=== PATIENT | female | born 1990 | race Caucasian/White ===

== ENCOUNTER 2016-03-23 08:07 | Emergency (ER) | END 2016-03-23 10:16 | disposition home or self-care (01) | DX: O20.9 Hemorrhage in early pregnancy, unspecified (principal); Z3A.15 15 weeks gestation of pregnancy | CPT/HCPCS: 36415; 76805; 81001; 84702; 85025; 86900; 86901; Z7502 ==

== ENCOUNTER 2016-05-07 23:48 | Outpatient (CLI) | payer MEDICAID ==
[~2016-05-07] VITALS: Ht 157.5 cm; Wt 72.1 kg
[2016-05-08 00:04] VITALS: BP 118/55; PULSE 109; RESP 20
[2016-05-08] MEDS ORDERED: PRENAT PO (00:10)
[2016-05-08] MEDS ORDERED: ACETAMINOPHEN 325 MG TAB PO ONE (00:30)
[2016-05-08] MEDS ORDERED: LACTATED RINGER'S 1,000 ML IV ONE (00:30)
[2016-05-08 00:43] LABS: ADD SCAN DIFF NO
[2016-05-08 00:47] LABS: BASOPHILS % 0.1 % (0.0-2.0); EOSINOPHILS % 0.3 % (0.0-7.0); HEMATOCRIT 29.7 % (37.0-47.0); HEMOGLOBIN 10.3 g/dl (12.0-16.0); LYMPHOCYTES # 0.8 10^3/ul (0.8-2.9); MEAN CORPUSCULAR HEMOGLOBIN 31.1 pg (29.0-33.0); MEAN CORPUSCULAR HGB CONC 34.7 g/dl (32.0-37.0); MEAN CORPUSCULAR VOLUME 89.7 fl (82.0-101.0); MEAN PLATELET VOLUME 9.2 fl (7.4-10.4); MONOCYTE # 0.4 10^3/ul (0.3-0.9); MONOCYTES % 5.6 % (0.0-11.0); NEUTROPHIL # 6.6 10^3/ul (1.6-7.5); NEUTROPHILS % 83.5 % (39.0-77.0); PLATELET COUNT 217 10^3/UL (140-415); RED BLOOD COUNT 3.31 10^6/ul (4.20-5.40); RED CELL DISTRIBUTION WIDTH 12.8 % (11.5-14.5); WHITE BLOOD COUNT 7.9 10^3/ul (4.8-10.8)
[2016-05-08 01:10] LABS: ALBUMIN 3.3 g/dl (3.3-4.9)
[2016-05-08 01:11] LABS: POTASSIUM 3.7 mmol/L (3.5-5.1)
[2016-05-08 01:13] LABS: ALBUMIN/GLOBULIN RATIO 1.17; BILIRUBIN,INDIRECT 0.3 mg/dl (0-1.1); BILIRUBIN,TOTAL 0.3 mg/dl (0.2-1.3); CREATININE 0.54 mg/dl (0.44-1.00); TOTAL PROTEIN 6.1 g/dl (6.1-8.1)
[2016-05-08 01:14] LABS: CALCIUM 8.5 mg/dl (8.4-10.2)
[2016-05-08 01:14] LABS: ADD UMIC NO; URINE BILIRUBIN (Dip) NEGATIVE (NEGATIVE); URINE BLOOD (Dip) NEGATIVE (NEGATIVE); URINE COLOR LT. YELLOW (YELLOW); URINE GLUCOSE (Dip) NEGATIVE (NEGATIVE); URINE KETONES (Dip) NEGATIVE (NEGATIVE); URINE LEUKOCYTE ESTERASE (Dip) NEGATIVE (NEGATIVE); URINE NITRITE (Dip) NEGATIVE (NEGATIVE); URINE TOTAL PROTEIN (Dip) NEGATIVE (NEGATIVE); URINE UROBILINOGEN (Dip) 0.2 E.U./dL (0.1-1.0)
[2016-05-08] MEDS ORDERED: LACTATED RINGER'S 1,000 ML IV SCH (01:20)
--- NOTE | 2016-05-08 02:46 | TRIAGE ---
OB Triage Datetime Report Generated by CPN: 05/08/2016 02:46 Datetime: 05/08/2016 01:57 Stage of : OB Triage Datetime: 05/08/2016 01:44 Nausea/Vomiting: Denies Datetime: 05/08/2016 01:15 Headache: Denies Pain Assessment Pain Scale: 0 Pain Presence: None/Denies Pain Type: N/A Pain Goal: 3 Pain Relief Measures: Pain Medication Given; Comfort Measures Pain Assessment Comments: PT DENIES FEELING ANY PAIN, STATES "I DO NOT HAVE ANY BODY ACHE OR HEADA K[place] ANYMORE" Datetime: 05/08/2016 01:00 Stage of : OB Triage Labor Evaluation Frequency: 0 Monitor Mode: External Resting Tone [place]: Relaxed Contraction Comments: MONITORS OFF Datetime: 05/08/2016 00:34 Monitor Mode: Palpation Resting Tone [place]: Relaxed Contraction Comments: SOFT UPON PALPATION Datetime: 05/08/2016 00:25 Heart Rate Monitor Mode: Doppler Comments: AUDIBLE STRONG FHT 135's WITH AUDIBLE ACCEL'S TO 170's Datetime: 05/08/2016 00:15 Monitor Mode: Palpation Resting Tone [place]: Relaxed Datetime: 05/08/2016 00:06 Vaginal Exam Membrane Status: Intact Datetime: 05/08/2016 00:05 EGA: 22.0 Datetime: 05/08/2016 00:00 Time of Arrival: 05/07/2016 23:43 Arrived By: Wheelchair Arrived From: Home Chief Complaint: ACHING PAIN BACK _ BILATERAL LE, COUGHING, PAIN R. EAR, VOMITTED X1 AN HR AGO (An notations: Data stored by CPN on behalf of user) Movement: Present (Annotations: Data stored by CPN on behalf of user) Contractions: Denies/Absent Rupture of Membranes: Denies Vaginal Bleeding: None Vaginal Discharge: Denies Recent Sexual Intercouse: Denies Abdominal Trauma: Not Applicable Patient Complaints: Nausea; Vomiting; Cough; Runny Nose; Other Time Provider Notified: 05/07/2016 23:47 Provider Notified: POLINA Initial Plan: 20 MIN TOCO _ DOPPLER, IV HYDRATION, LABS, TYLENOL 650 MG PO Datetime: 05/07/2016 23:57 Assessment Type: Triage Maternal Assessment Level of Consciousness: Fully Conscious DTR's/Clonus: DTRs 2+; No Clonus Headache: Frontal Blurred Vision: No Respiratory Effort: Unlabored; Regular Rhythm; Equal Expansion Breath Sounds, Left: Clear and Equal Breath Sounds, Right: Clear and Equal Nausea/Vomiting: Denies RUQ Epigastric Pain: Denies Lower Extremities Edema: None Degree: None Upper Extremities Edema: None Degree: None Facial Edema: None Temperature Route: Oral Fall Risk Assessment History of Falling: (0) No Secondary Diagnosis: (0) No Ambulatory Aid: (0) Bedrest/Nurse Assist IV Therapy: (0) No Gait: (0) Normal/Bedrest/Immobile Mental Status: (0) Oriented to Own Ability Fall Score: 0 Fall Risk Score Definition: No Risk: No action required Pain Assessment Pain Scale: 8 Pain Presence: Constant Pain Type: Ache Pain Location: Back; Right Leg; Left Leg Pain Goal: 4 Pain Relief Measures: Comfort Measures Datetime: 05/07/2016 23:52 Stage of : OB Triage
--- NOTE | 2016-05-08 02:49 | TRIAGE ---
OB Triage Datetime Report Generated by CPN: 05/08/2016 02:49 Datetime: 05/08/2016 01:44 Pain Scale: 0 Pain Presence: None/Denies Pain Type: N/A Pain Goal: 3 Datetime: 05/08/2016 01:15 Pain Assessment Comments: PT DENIES FEELING ANY PAIN, STATES "I DO NOT HAVE ANY BODY ACHE OR HEADA KOLTON ANYMORE AFTER TYLENOL"
--- NOTE | 2016-05-08 02:53 | TRIAGE ---
OB Triage Datetime Report Generated by CPN: 05/08/2016 02:53 Datetime: 05/08/2016 00:00 Chief Complaint: ACHING PAIN ON THE BACK _ BILATERAL LE, COUGHING, PAIN R. EAR, VOMITTED X1 AN HR AGO
== END 2016-05-08 02:22 | disposition home or self-care (01) ==
LOC: OBT 23:48 → L-D 23:49 → OBT 05-08 02:22
PROVIDERS: ATTEND Obstetrics & Gynecology
DX: O60.02 Preterm labor without delivery, second trimester (principal); O99.012 Anemia complicating pregnancy, second trimester; O26.892 Other specified pregnancy related conditions, second trimester; J11.1 Influenza due to unidentified influenza virus with other respiratory manifestations; Z3A.22 22 weeks gestation of pregnancy
CPT/HCPCS: 36415; 80053; 81003; 85025; 96360; 96361; J7120; Z7500; Z7610; G0463

== ENCOUNTER 2016-08-01 17:44 | Emergency (ER) | payer OTHER ==
[~2016-08-01] VITALS: Wt 80.5 kg
[~2016-08-01 17:44] MED LIST: PRENAT PO
--- NOTE | 2016-08-01 19:30 | ERD ---
ER Documentation Chief Complaint Date/Time DATE: 08/01/16 TIME: 19:25 Chief Complaint mario ear "infection". pt. 32 wks preg, denies abd pain, cramping HPI This 25-year-old female presents to emergency department today for evaluation of clogged ears. Patient has history of cerumen impaction, has started using [id number] Debrox several days ago with no relief of symptoms. Patient reports she is unable to hear, denies dizziness, denies pain, patient is 33 weeks , denies any alteration with baby's movement, vaginal discharge, or pain. ROS All systems reviewed and are negative except as per history of present illness. Medications Home Meds Reported Medications Multivit/Min/Fol Ac/Iron/Pren* ( S*) 1 Tab Tab, 1 TAB PO DAILY, TAB 05/08/16 Allergies Allergies: Coded Allergies: No Known Allergy (Unverified , 05/08/16) PMhx/Soc History of Surgery: Yes (Ectopic ) Anesthesia Reaction: No Hx Neurological Disorder: No Hx Respiratory Disorders: No Hx Cardiac Disorders: No Hx Psychiatric Problems: No Hx Miscellaneous Medical Probl: Yes (ear infection) Hx Alcohol Use: No Hx Substance Use: No Hx Tobacco Use: No Smoking Status: Never smoker Physical Exam Vitals Vital Signs Date Time Temp Pulse Resp B/P Pulse Ox O2 Delivery O2 Flow Rate FiO2 08/01/16 17:49 98.7 81 20 99/57 98 Vitals stable, triage notes reviewed Physical Exam Const: No acute distress Head: Atraumatic Eyes: Normal Conjunctiva, PERRLA, EOMI ENT: Bilateral tympanic membranes not visualized related to cerumen impaction Neck: Resp: Chest rises and falls symmetrically, no respiratory distress Cardio: Abd: 's abdomen Skin: Back: Ext: Neur: Awake and alert Psych: Normal Mood and Affect Results 24 hrs This 25-year-old, 32 week female presents to emergency department today for decreased hearing. Patient denies pain, discharge coming from the ears, fever, patient denies any changes in , denies abdominal pain, vaginal bleeding, or change in kick count. Otitis media, my right otitis, mastoiditis, cholesteatoma not suspected. Bilateral ear lavage in usual fashion by registered nurse. Post assessment shows right tympanic membrane is translucent, auditory canal is wet without narrowing or evidence of infection. Left tympanic membrane remains obstructed with deep cerumen. Patient will be discharged home with instruction to continue wax removal drops, Debrox, as directed, follow-up with primary care physician or return to emergency department in 48 hours for repeat lavage. I feel the patient is stable for discharge at this time. I have discussed results, examination findings, the treatment plan with the patient and family present prior to discharge. Indications for emergent reevaluation, side effects of medication were also discussed. All questions were answered. Patient verbalizes understanding and agrees with plan of care. Procedures/MDM Bilateral ear lavage by RN, right tympanic membrane visualized tympanic membrane cloudy, without evidence of infection, auditory canal is wet, left tympanic membrane not visualized Departure Diagnosis: Primary Impression: Impacted cerumen of both ears Condition: Good Patient Instructions: Cerumen Impaction, Home Care Referrals: [facility] Additional Instructions: Thank you for for coming to [facility] for your care today. Please ask your nurse or provider if you have questions about your care today and do not leave until all your questions have been answered. Please use any medications given as directed and follow-up with your doctor (or the doctor you were referred to) in the next 2-3 days. If you do not have a primary care doctor you may follow up at the [facility] [place] (listed below). You may also use motrin and tylenol as needed for fever and/or pain unless instructed otherwise by your provider or nurse. Indications for more urgent follow-up have been discussed, but you may return to the Emergency Department at ANY time for any worrisome or worsening symptoms. If you have abdominal pain, please know that no test or exam you received is perfect and you should follow up within 8 hours for continued pain. If you had any imaging studies today, such as an X-Ray or CT Scan, these studies will be reviewed later by a radiologist. You will be called if there are important findings that were not identified today, so make sure the contact information you provided at registration is correct. If you received any narcotic pain control medicine today, such as Vicodin, Morphine or Dilaudid, your coordination and judgment may be affected for a number of hours. Please do not drive or operate heavy machinery, and you may want someone to assist you at home. If you were given a prescription for narcotic medication, be aware that it is very addictive- use sparingly and only if necessary. LEXI SCHOFIELD Aug 01, 2016 19:30
== END 2016-08-01 19:40 | disposition home or self-care (01) ==
LOC: FTE 17:44
DX: O99.89 Other specified diseases and conditions complicating pregnancy, childbirth and the puerperium (principal); H61.23 Impacted cerumen, bilateral; Z3A.32 32 weeks gestation of pregnancy
CPT/HCPCS: 69209; Z7502

== ENCOUNTER 2016-08-25 17:25 | Outpatient (CLI) | payer MEDICAID, OTHER ==
[~2016-08-25] VITALS: Ht 157.5 cm; Wt 81.9 kg
[2016-08-25 17:46] VITALS: BP 97/65; Ht 157.5 cm; Wt 81.9 kg
[2016-08-25 18:24] LABS: ADD SCAN DIFF NO
--- NOTE | 2016-08-25 18:38 | RADRPT ---
PROCEDURE: Obstetrical ultrasound CLINICAL INDICATION: SROM TECHNIQUE: Multiple sonographic images of the pelvis were obtained. The images were reviewed on a PACS workstation. COMPARISON: None FINDINGS: The cervix is not well visualized. There is a single viable intrauterine gestation. Cardiac activity is present with 139 beats per minute. There is a vertex presentation. The placenta is anterior. There is no evidence for an abruption or placenta previa. There is a subjectively normal amount of amniotic fluid. Measurements were made in order to determine age. The results are as follows (cm): BPD =8.75 HC =31.61 AC =31.73 FL =6.86 Estimated gestational age by ultrasound of approximately 35 weeks, 3 days. The estimated date of delivery by ultrasound is 09/26/2016. Estimated gestational age by LMP of approximately 37 weeks, 2 days. The estimated date of delivery by LMP is 09/13/2016. EFW = 2692 grams (15th percentile) IMPRESSION: Single viable intrauterine gestation of approximately 35 weeks, 3 days . The estimated date of delivery is 09/26/2016 . Dating by ultrasound is within 13 days of dating by LMP. Cephalic presentation. The cervix is not well visualized. RPTAT: EE Physician Jonny Date Time Electronically viewed and signed by Physician Jonny on 08/25/2016 18:38 RA/
[2016-08-25 18:40] LABS: BASOPHILS % 0.1 % (0.0-2.0); EOSINOPHILS # 0.1 10^3/ul (0.0-0.5); EOSINOPHILS % 1.8 % (0.0-7.0); HEMATOCRIT 32.4 % (37.0-47.0); HEMOGLOBIN 11.3 g/dl (12.0-16.0); LYMPHOCYTES # 1.6 10^3/ul (0.8-2.9); LYMPHOCYTES % 21.2 % (15.0-51.0); MEAN CORPUSCULAR HEMOGLOBIN 30.8 pg (29.0-33.0); MEAN CORPUSCULAR HGB CONC 34.9 g/dl (32.0-37.0); MEAN CORPUSCULAR VOLUME 88.3 fl (82.0-101.0); MEAN PLATELET VOLUME 9.7 fl (7.4-10.4); MONOCYTE # 0.5 10^3/ul (0.3-0.9); MONOCYTES % 7.2 % (0.0-11.0); NEUTROPHIL # 5.1 10^3/ul (1.6-7.5); PLATELET COUNT 240 10^3/UL (140-415); RED BLOOD COUNT 3.67 10^6/ul (4.20-5.40); RED CELL DISTRIBUTION WIDTH 13.6 % (11.5-14.5); WHITE BLOOD COUNT 7.4 10^3/ul (4.8-10.8)
--- NOTE | 2016-08-25 18:44 | RADRPT ---
PROCEDURE: US OB biophysical profile. CLINICAL INDICATION: Decreased movement TECHNIQUE: Multiple sonographic images of the pelvis were obtained. The images were reviewed on a PACS workstation. COMPARISON: No prior studies are available for comparison. FINDINGS: There is a single viable intrauterine gestation. Cardiac activity is present with 143 beats per min giuseppe. There is a vertex presentation. The placenta is anterior. There is no evidence of placental abruption. There is a normal amount of amniotic fluid with an MELLISA = 9.8 cm. Biophysical profile: movement 2/2 tone 2/2. breathing 2/2 MELLISA 2/2 Total 10/05 RPTAT: AA . IMPRESSION: Normal biophysical profile. Physician Jonny Date Time Electronically viewed and signed by Physician Jonny on 08/25/2016 18:44 RA/
--- NOTE | 2016-08-25 23:56 | TRIAGE ---
OB Triage Datetime Report Generated by CPN: 08/25/2016 23:55 Datetime: 08/25/2016 20:20 Stage of : OB Triage Datetime: 08/25/2016 20:18 Stage of : OB Triage Labor Evaluation Frequency: NONE Monitor Mode: External Heart Rate FHR Baseline Rate: 125 Monitor Mode: External US Variability: Moderate 6-25 bpm Accelerations: 15X15 Decelerations: None Category: Category I Pain Assessment Pain Scale: 4 Pain Presence: Constant Pain Type: Cramping Pain Location: Back Pain Goal: 3 Pain Relief Measures: Comfort Measures Vaginal Exam Dilatation (cms): 0.0 Effacement (%): 50 Station: -3 Exam By: MEGA TROTTER Datetime: 08/25/2016 19:28 Stage of : OB Triage Vaginal Exam Dilatation (cms): 0.0 Effacement (%): 50 Station: -3 Exam By: MEGA TROTTER Datetime: 08/25/2016 19:25 Stage of : OB Triage Datetime: 08/25/2016 19:10 Stage of : OB Triage Datetime: 08/25/2016 19:06 Stage of : OB Triage Datetime: 08/25/2016 18:58 Stage of : OB Triage Datetime: 08/25/2016 18:47 Labor Evaluation Frequency: 0 Monitor Mode: External Pattern: Normal: <= 5 Contractions in 10 Minutes Resting Tone [place]: Relaxed Heart Rate FHR Baseline Rate: 135 Monitor Mode: External US Variability: Moderate 6-25 bpm Accelerations: 10X10 Decelerations: None Category: Category I Pain Assessment Pain Scale: 4 Pain Presence: Intermittent Pain Type: Cramping Pain Location: Abdomen Pain Goal: 3 Pain Relief Measures: Comfort Measures Datetime: 08/25/2016 17:54 Stage of : OB Triage Datetime: 08/25/2016 17:51 Stage of : OB Triage Datetime: 08/25/2016 17:43 Stage of : OB Triage Assessment Type: Triage Maternal Assessment Level of Consciousness: Fully Conscious DTR's/Clonus: DTRs 2+; No Clonus Headache: Denies Blurred Vision: No Respiratory Effort: Unlabored; Regular Rhythm; Equal Expansion Breath Sounds, Left: Clear and Equal Breath Sounds, Right: Clear and Equal Nausea/Vomiting: Denies RUQ Epigastric Pain: Denies Facial Edema: None Temperature Route: Axillary Fall Risk Assessment History of Falling: (0) No Secondary Diagnosis: (0) No Ambulatory Aid: (0) Bedrest/Nurse Assist IV Therapy: (0) No Gait: (0) Normal/Bedrest/Immobile Mental Status: (0) Oriented to Own Ability Fall Score: 0 Fall Risk Score Definition: No Risk: No action required Labor Evaluation Frequency: 0 Monitor Mode: External Resting Tone [place]: Relaxed Heart Rate FHR Baseline Rate: 125 Monitor Mode: External US Variability: Moderate 6-25 bpm Accelerations: None Decelerations: None Category: Category II Pain Assessment Pain Scale: 5 Pain Presence: Intermittent Pain Type: Cramping Pain Location: Back Pain Goal: 3 Pain Relief Measures: Comfort Measures Datetime: 08/25/2016 17:41 Time of Arrival: 08/25/2016 17:25 EGA: 37.2 Arrived By: Ambulatory Arrived From: Home Chief Complaint: BACK PAIN THAT IS INTERMITTENT X 3 DAYS, POSS LEAKING OF FLUID ON TUESDAY, DENIES BLEEDING. ALSO DFM TODAY Movement: Decreased Contractions: Occasional Rupture of Membranes: Unsure Vaginal Bleeding: None Vaginal Discharge: Denies Recent Sexual Intercouse: Denies Abdominal Trauma: Not Applicable Patient Complaints: Cramping; Back Pain Initial Plan: MONITOR, BPP/EFW, CBC, ROM PLUS Datetime: 05/08/2016 00:05 EGA: 21.5 Datetime: 05/07/2016 23:57 Fall Score: 0 Fall Risk Score Definition: No Risk: No action required
--- NOTE | 2016-08-26 04:29 | PN ---
Triage Information Date/Time 08/25/2016 Weeks of Gestation 37 weeks and 2 days : 2 Para: 0 Diabetes: none Hypertention: none Additional information 25 years old with IUP at 37 weeks and 2 days presented with complaint of leaking of fluid and decreased movement as well as occasional contractions. Denies any complication during her course. Objective Vital Signs Date Time Temp Pulse Resp B/P Pulse Ox O2 Delivery O2 Flow Rate FiO2 08/25/16 17:46 98.1 97/65 Heart Rate: 120's Contractions: >10 Minutes Apart Exam General appearance: Alert and oriented does not appear to be in any acute distress. 4. Abdomen: Soft, gravid, fundal height consistent with gestational age Sterile speculum examination negative pooling. R OM test negative Extremities: No calf tenderness, no click no edema NST: Category 1. Irregular contractions. Cervical exam is 1 cm long and high Patient observed in triage. After reevaluation the cervical change noted Results/Medications Result Diagram: 08/25/16 1800 Results 24 hrs Laboratory Tests Test 08/25/16 18:00 White Blood Count 7.4 Red Blood Count 3.67 L Hemoglobin 11.3 L Hematocrit 32.4 L Mean Corpuscular Volume 88.3 Mean Corpuscular Hemoglobin 30.8 Mean Corpuscular Hemoglobin Concent 34.9 Red Cell Distribution Width 13.6 Platelet Count 240 Mean Platelet Volume 9.7 Neutrophils % 69.0 Lymphocytes % 21.2 Monocytes % 7.2 Eosinophils % 1.8 Basophils % 0.1 Nucleated Red Blood Cells % 0.0 Neutrophils # 5.1 Lymphocytes # 1.6 Monocytes # 0.5 Eosinophils # 0.1 Basophils # 0.0 Nucleated Red Blood Cells # 0.0 Membranes Rupture NEGATIVE Assessment/Plan IUP at 37 weeks and 2 days No evidence of PROM no evidence of labor NST: Category 1 tracing Patient observed in triage. No cervical change noted during observation. No evidence of labor DC home. Follow-up with OB office in 1-2 days after discharge home. labor precaution and kick count discussed. LAMBERTO TOBAR MD Aug 26, 2016 04:29
== END 2016-08-25 20:32 | disposition home or self-care (01) ==
LOC: OBT 17:25 → L-D 17:26 → OBT 20:32
PROVIDERS: ATTEND Obstetrics & Gynecology
DX: O36.8130 Decreased fetal movements, third trimester, not applicable or unspecified (principal); Z3A.37 37 weeks gestation of pregnancy
CPT/HCPCS: 36415; 76815; 76818; 84112; 85025; Z7500; G0463

== ENCOUNTER 2016-09-13 21:35 | Outpatient (CLI) | payer OTHER ==
[~2016-09-13] VITALS: Ht 157.5 cm; Wt 85.6 kg
[2016-09-13 22:13] VITALS: Ht 157.5 cm; Wt 85.6 kg
[2016-09-13 22:14] VITALS: BP 114/71; PULSE 94; RESP 18
--- NOTE | 2016-09-13 22:47 | RADRPT ---
PROCEDURE: US biophysical profile. CLINICAL INDICATION: Contractions. Decreased motion. TECHNIQUE: Multiple sonographic images of the uterus were obtained. The images were revi ewed on a PACS workstation. COMPARISON: 08/25/2016. FINDINGS: There is a single live intrauterine gestation. heart rate is 144 beats per minute. The position is cephalic. The placenta is anterior grade 1 with no abruption or previa. The MELLISA is 7.5 cm. (Normal = 5-20 cm.) Breathing Movement: 2 Gross Body Movement: 2 Tone: 2 Qualitative Amniotic Fluid Volume: 2 TOTAL: 8 IMPRESSION: 1. The biophysical score is 8/8. RPTAT: QQ .Mulugeta Knox MD, MD Date Time Electronically viewed and signed by .Mulugeta Knox MD, on 09/13/2016 22:47 .R/
--- NOTE | 2016-09-13 23:27 | TRIAGE ---
OB Triage Datetime Report Generated by CPN: 09/13/2016 23:26 Datetime: 09/13/2016 23:06 Stage of : OB Triage Datetime: 09/13/2016 22:30 Labor Evaluation Frequency: 1 Monitor Mode: External Duration (sec)2399: 70 Quality: Mild Pattern: Normal: <= 5 Contractions in 10 Minutes Resting Tone [place]: Relaxed Heart Rate FHR Baseline Rate: 125 Monitor Mode: External US FHR Baseline Changes: No Baseline Change Variability: Moderate 6-25 bpm Accelerations: 15X15 Decelerations: None Category: Category I Datetime: 09/13/2016 22:06 Vaginal Exam Dilatation (cms): 1.0 Effacement (%): 30 Station: -3 Exam By: Polo MORENO RN Vaginal Bleeding: None Cervix, Consistency: Firm Cervix, Position: Posterior Datetime: 09/13/2016 21:40 Stage of : OB Triage Assessment Type: Triage Time of Arrival: 09/13/2016 21:34 EGA: 40.0 Arrived By: Wheelchair Arrived From: Home Chief Complaint: BACK /PELVIC/ VAGINAL PAIN Movement: Present Contractions: Denies/Absent Time Contractions Began: 09/13/2016 09:00 Rupture of Membranes: Denies Vaginal Bleeding: None Vaginal Discharge: Denies Recent Sexual Intercouse: Denies Patient Complaints: None Time Provider Notified: 09/13/2016 21:58 Provider Notified: DR SCHWAB Initial Plan: CALL BHAVIN DEGROOT Maternal Assessment Level of Consciousness: Fully Conscious DTR's/Clonus: DTRs 2+; No Clonus Headache: Denies Blurred Vision: No Respiratory Effort: Unlabored; Regular Rhythm; Equal Expansion Breath Sounds, Left: Clear and Equal Breath Sounds, Right: Clear and Equal Nausea/Vomiting: Denies RUQ Epigastric Pain: Denies Lower Extremities Edema: None Degree: None Upper Extremities Edema: None Degree: None Facial Edema: None Temperature Route: Oral Fall Risk Assessment History of Falling: (0) No Secondary Diagnosis: (0) No Ambulatory Aid: (0) Bedrest/Nurse Assist IV Therapy: (0) No Gait: (0) Normal/Bedrest/Immobile Mental Status: (0) Oriented to Own Ability Fall Score: 0 Fall Risk Score Definition: No Risk: No action required Monitor Mode: External Monitor Mode: External US Pain Assessment Pain Scale: 5 Pain Presence: Intermittent Pain Type: Contraction Pain Location: Abdomen; Back Datetime: 08/25/2016 17:43 Fall Score: 0 Fall Risk Score Definition: No Risk: No action required Datetime: 08/25/2016 17:41 EGA: 37.2 Datetime: 05/08/2016 00:05 EGA: 21.5 Datetime: 05/07/2016 23:57 Fall Score: 0 Fall Risk Score Definition: No Risk: No action required
--- NOTE | 2016-09-14 06:30 | PN ---
Triage Information Date/Time Weeks of Gestation Late Entry Note- pt sen on 09/13/16 25 Year-old (EP) with SIUP at 40 weeks presents with a chief complaint of occasional ucs. She has been receiving her care with [facility]. She states good movement. She denies nausea, vomiting, shortness of breath, chest pain, headache, visual changes, vaginal bleeding or LOF. : 2 Para: 0 Diabetes: none Hypertention: none Objective Vital Signs Date Time Temp Pulse Resp B/P Pulse Ox O2 Delivery O2 Flow Rate FiO2 09/13/16 22:14 98.2 94 18 114/71 Room Air Heart Rate: 140's Contractions: >10 Minutes Apart Exam General: Patient appears well, alert and oriented, NAD, appropriate mood and affect ABD: gravid, soft, non-tender. Back: No CVA tenderness (B/L) LE: No clubbing, cyanosis, edema, thigh or calf tenderness bilaterally FHT: 140 bpm , moderate variability with acceleration, no deceleration-category I Contractions: Occasional SVE: closed/thick/high/ceph/intact membrane Assessment/Plan 25 Year-old (EP) with SIUP at 40 weeks c/o ucs - FHR: No sign of metabolic acidosis- Category I - Continuous EFM, toco - Contractions: Occasional - OB us performed, nml [place] - Symptoms and sign of labor, preeclampsia, kick count discussed with patient, she voiced understanding. All of her questions answered. - Patient was discharged home in stable condition with the appropriate discharge instructions provided. I would like patient to have close follow-up with her primary physician or outpatient clinic in 1-2 days or return to the ER for worsening symptoms or any other urgent concerns. ELIZABETH SCHWAB Sep 14, 2016 06:30
== END 2016-09-13 23:21 | disposition home or self-care (01) ==
LOC: L-D 21:35 → OBT 21:35
PROVIDERS: ATTEND Obstetrics & Gynecology
DX: O47.1 False labor at or after 37 completed weeks of gestation (principal); Z3A.40 40 weeks gestation of pregnancy
CPT/HCPCS: 76818; Z7500; G0463

== ENCOUNTER 2016-09-14 10:05 | Inpatient (IN) | payer OTHER ==
[~2016-09-14] VITALS: Ht 157.5 cm; Wt 84.0 kg
[2016-09-14 10:49] VITALS: Ht 157.5 cm; Wt 84.0 kg
[2016-09-14 10:50] VITALS: BP 119/75; PULSE 96; RESP 18
[2016-09-14] MEDS ORDERED: MISOPROSTOL 200 MCG TAB PR PRN (11:00)
[2016-09-14] MEDS ORDERED: METHYLERGONOVINE 0.2 MG INJ IM PRN (11:00)
[2016-09-14] MEDS ORDERED: IBUPROFEN 600 MG TAB PO PRN (11:00)
[2016-09-14] MEDS ORDERED: CARBOPROST 250 MCG INJ IM PRN (11:00)
[2016-09-14] MEDS ORDERED: LIDOCAINE 1% (MPF) 30 ML INJ INJ PRN (11:00)
[2016-09-14] MEDS ORDERED: BUTORPHANOL 2 MG INJ IV PRN (11:00)
[2016-09-14] MEDS ORDERED: LACTATED RINGER'S 1,000 ML IV PRN (11:00)
[2016-09-14] MEDS ORDERED: OXYTOCIN 30 UNITS/LR 500 ML IV PRN (11:00)
[2016-09-14] MEDS: LACTATED RINGER'S 1,000 ML IV SCH ×3 (11:13→23:08)
[2016-09-14 11:30] LABS: ADD SCAN DIFF NO
[2016-09-14] MEDS ORDERED: OXYTOCIN 30 UNITS/LR 500 ML IV SCH ×2 (11:30)
[2016-09-14 11:43] LABS: INR 0.97; PROTIME 12.9 Sec (12.2-14.2)
[2016-09-14 11:50] LABS: BASOPHILS % 0.4 % (0.0-2.0); EOSINOPHILS # 0.1 10^3/ul (0.0-0.5); EOSINOPHILS % 1.6 % (0.0-7.0); HEMATOCRIT 36.3 % (37.0-47.0); HEMOGLOBIN 12.1 g/dl (12.0-16.0); LYMPHOCYTES # 1.9 10^3/ul (0.8-2.9); LYMPHOCYTES % 21.9 % (15.0-51.0); MEAN CORPUSCULAR HEMOGLOBIN 30.5 pg (29.0-33.0); MEAN CORPUSCULAR HGB CONC 33.3 g/dl (32.0-37.0); MEAN CORPUSCULAR VOLUME 91.4 fl (82.0-101.0); MEAN PLATELET VOLUME 9.8 fl (7.4-10.4); MONOCYTE # 0.6 10^3/ul (0.3-0.9); MONOCYTES % 7.4 % (0.0-11.0); NEUTROPHIL # 5.8 10^3/ul (1.6-7.5); NEUTROPHILS % 67.6 % (39.0-77.0); PLATELET COUNT 223 10^3/UL (140-415); RED BLOOD COUNT 3.97 10^6/ul (4.20-5.40); RED CELL DISTRIBUTION WIDTH 13.7 % (11.5-14.5); WHITE BLOOD COUNT 8.5 10^3/ul (4.8-10.8)
[2016-09-14 12:33] LABS: PARTIAL THROMBOPLASTIN TIME 22.8 Sec (25.0-35.0)
--- NOTE | 2016-09-14 12:40 | RADRPT ---
PROCEDURE: Obstetrical ultrasound CLINICAL INDICATION: R/O MACROSOMIA, labor TECHNIQUE: Multiple sonographic images of the pelvis were obtained. The images were reviewed on a PACS workstation. COMPARISON: Obstetrical ultrasound from 08/25/2016 FINDINGS: The cervix is not well visualized. There is a single viable intrauterine gestation. Cardiac activity is present with 132 beats per minute. There is a vertex presentation. The placenta is anterior. There is no evidence for an abruption or placenta previa. There is a subjectively normal amount of amniotic fluid. Measurements were made in order to determine age. The results are as follows (cm): BPD =8.65 HC =31.07 AC =32.48 FL =6.98 Estimated gestational age by ultrasound of approximately 35 weeks, 3 days. The estimated date of delivery by ultrasound is 10/16/2016. Estimated gestational age by LMP of approximately 40 weeks, 1 day. The estimated date of delivery by LMP is 09/13/2016. EFW = 2794 grams (3rd percentile) IMPRESSION: Single viable intrauterine gestation of approximately 35 weeks, 3 days . The estimated date of delivery is 10/16/2016 . Dating by ultrasound is not consistent with dating by LMP. Cephalic presentation. Estimated weight is 2794 g which is in the 3rd percentile. RPTAT: EE Physician Jonny Date Time Electronically viewed and signed by Physician Jonny on 09/14/2016 12:40 /
[2016-09-14] MEDS ORDERED: NALOXONE (0.4 MG/ML) INJ IV PRN (21:30)
[2016-09-14] MEDS ORDERED: ONDANSETRON 4 MG INJ IV PRN (21:30)
[2016-09-14] MEDS ORDERED: HYDROmorphONE 1 MG/ML SYG IV PRN ×2 (21:30)
[2016-09-14] MEDS ORDERED: DIPHENHYDRAMINE 50 MG INJ IV PRN (21:30)
[2016-09-14] MEDS ORDERED: EPHEDrine SULFATE 50 MG/5 ML SYG ONE (22:34)
[2016-09-14] MEDS: FENTAnyl 2MCG/ML-ROPIV 0.2% 100 ML BAG EPI SCH (22:40)
[2016-09-14] MEDS: EPHEDrine SULFATE 50 MG/5 ML SYG IV PRN (22:41)
[2016-09-15] MEDS: LACTATED RINGER'S 1,000 ML IV SCH ×5 (00:26→23:43)
[2016-09-15] MEDS: EPHEDrine SULFATE 50 MG/5 ML SYG IV PRN ×2 (01:20→01:42)
[2016-09-15] MEDS: FENTAnyl 2MCG/ML-ROPIV 0.2% 100 ML BAG EPI SCH ×2 (05:18→12:40)
[2016-09-15] MEDS ORDERED: OXYTOCIN 30 UNITS/LR 500 ML BAG IV ONE (07:00)
[2016-09-15] MEDS ORDERED: ONDANSETRON 4 MG INJ ONE (07:00)
[2016-09-15] MEDS ORDERED: METOCLOPRAMIDE 10 MG INJ ONE (07:00)
[2016-09-15] MEDS ORDERED: AMPICILLIN 2 GM/NS (PMX) 100 ML IV ONE (10:15)
[2016-09-15] MEDS: AMPICILLIN 1 GM/NS (PMX) 50 ML IV SCH ×3 (14:31→22:30)
--- NOTE | 2016-09-15 15:59 | QN ---
Documentation Comment I was called and asked to evaluate this patient that has been already undergoing induction at 39 + weeks due to variable declerations noted in the tracing, went to the patient's bed side. Patient has been under care of Dr. Lau. Noted to have variable decelerations and currently undergoing amnioinfusion. Due to some prior year late deceleration Pitocin was stopped and due to variable deceleration she underwent amnioinfusion. Cervical exam: / which shows no change compared to prior exam heart tracing reviewed. Currently now category 1 with good variability She had AROM done in [place] by her OB Dr. lau Consider restarting the Pitocin and will observe her closely I have discussed with the patient regarding section in case of intolerance to labor or failure to progress Currently heart tracing category 1 Risk and benefit of section discussed with the patient patient verbalized understanding. At this point will continue monitoring after starting Pitocin Follow closely labor curve as well as tracing We will proceed with above plan if failure to progress or intolerance to labor.. LAMBERTO TOBAR MD Sep 15, 2016 15:59
[2016-09-15] MEDS ORDERED: ONDANSETRON 4 MG INJ IV STA (16:49)
[2016-09-15] MEDS ORDERED: FAMOTIDINE 20 MG INJ IV ONE (16:53)
[2016-09-15] MEDS ORDERED: NALOXONE (0.4 MG/ML) INJ IV PRN (17:00)
[2016-09-15] MEDS ORDERED: PROCHLORPERAZINE 10 MG INJ IV PRN ×3 (17:00→21:30)
[2016-09-15] MEDS ORDERED: CEFAZOLIN 2 GM/50 ML (PMX) 50 ML IVPB SCH (17:00)
[2016-09-15] MEDS ORDERED: HYDROmorphONE 1 MG/ML SYG IV PRN (17:00)
[2016-09-15] MEDS ORDERED: ONDANSETRON 4 MG INJ IV PRN ×3 (17:00→21:30)
[2016-09-15] MEDS ORDERED: HYDROmorphONE (0.2 MG/ML) 10ML SYG IV PRN ×2 (17:30→21:30)
[2016-09-15] MEDS ORDERED: KETOROLAC 30 MG INJ IV ONE ×2 (17:30→21:30)
--- NOTE | 2016-09-15 19:51 | HP ---
Date/Time of Note Date/Time of Note DATE: 09/15/16 TIME: 19:44 OB - History Hx of Present Free Text/Dictation 09/15/2016 Estimated Due Date: Sep 20, 2016 Para: 2 Spontaneous : 0 Care: Good Care Obstetrical Complications: None Other Concerns: 25 years old with IUP at 39 weeks and 2 days by her JOSÉ MIGUEL admitted by Dr. Grimes for induction. She has not any complication during her care. Past Family/Social History * Past Medical, Surgical, Family and Obstetric Histories reviewed from chart. Blood Type: O+ Rubella: not immune RPR/VDRL: Negative GBS Status: Negative HBsAG: Negative OB Admission Exam Vital Signs Vital Signs Vital Signs Date Time Temp Pulse Resp B/P Pulse Ox O2 Delivery O2 Flow Rate FiO2 09/14/16 10:50 98.4 96 18 119/75 Room Air Physical Exam HEENT: WNL Heart: Rhythm Normal Lungs: Clear Abdomen: WNL Cervical Dilatation: 6cm Effacement: 50% Station: 0 Membranes: Ruptured (since 5: 57 am. clear) Amniotic Fluid: Other (with speckels ) Heart Rate: 140's Accelerations: Accelerations Present Varibility: Moderate Contractions on Admission: 6-10 Minutes Apart Intensity: Moderate Last 72 hours Lab Results CBC & BMP 09/14/16 10:35 OB Assessment/Plan Other Assessment: IUP at 39 weeks and 2 days she was admitted by for induction, then she was assigned to vt for management of labor after she was 6 cm dilated due to unavailability of the attending for this delivery. She was ruptured at 5 : 30 am noted to have variable decelerations and process of amnioinfusion has currently been started. Patient noted to have failreu to progress after > 4 hour consistent with arrest of labor Discussed with the patient regarding section Risk and benefit of procedure including risk of infection, bleeding, damage to surrounding structures including bowel and bladder and risk of blood transfusion including but not limited to blood borne infections including HIV, hepatitis B and C and transfusion reactions discussed with the patient in detail Informed consent was obtained. Patient verbalized understanding all above risks and desires to proceed Plan to take the patient to the OR Or and anesthesia was notified Received 2 g Ancef prior to be taken to the OR LAMBERTO TOBAR MD Sep 15, 2016 19:51
[2016-09-15] MEDS ORDERED: morphine SULFATE/PF (10 MG/10 ML) INJ ONE (20:02)
[2016-09-15] MEDS ORDERED: OXYTOCIN 10 UNIT INJ ONE (20:02)
[2016-09-15] MEDS ORDERED: DEXAMETHASONE 4 MG/ML 1 ML INJ ONE (20:14)
[2016-09-15] MEDS ORDERED: LIDOCAINE 2%/EPI 30 ML INJ ONE (20:19)
[2016-09-15] MEDS ORDERED: MIDAZOLAM 1 MG/ML 2 ML INJ ONE (20:48)
[2016-09-15] MEDS ORDERED: PHENYLephrine (100 MCG/ML) 5ML SYG ONE (20:56)
[2016-09-15] MEDS: OXYTOCIN 30 UNITS/LR 500 ML IV SCH ×2 (22:01→22:22)
[2016-09-15] MEDS ORDERED: KETOROLAC 30 MG INJ IV PRN (23:00)
--- NOTE | 2016-09-15 23:52 | OPR ---
Operative Report Planned Procedure Free Text/Dictation Indication for : Failure to progress, category 2 tracing Procedure date Sep 15, 2016 Procedure(s) Primary low transverse section Performed by: LAMBERTO TOBAR MD Assisting provider: AUTUMN MAHAJAN MD Anesthesiologist: GIANFRANCO CUELLAR MD Pre-procedure diagnosis 1. IUP at 39+ weeks 2-. Failure to progress 3. Category 2 tracing Anesthesia Type: epidural Procedure Description Under satisfactory [epidural] anesthesia, the patient was prepped and draped and placed in a supine position, tilted to the left. Pfannenstiel incision was made, carried through the subcutaneous tissue. Bleeders brought under control with electrocautery. Fascia incised to the length of the incision. Rectus muscles from the fascia, divided midline. Peritoneum exposed, entered through a transverse incision. Exploration of abdomen revealed gravid uterus. Bladder flap was developed. Transverse incision was made in the lower segment of the uterus. Amniotic sac ruptured. [Thin meconium stained] amniotic fluid noted. Baby's head was noted to be occiput posterior position and was brought up to the incision and delivered as occiput anterior after rotating [] Nasal oropharyngeal suction was performed immediately after delivery of the head. Nuchal cord 1 with compression noted that was released after delivery of the head. Cord blood was obtained the baby was handed to the team for immediate attention. The placenta was delivered manually intact. Uterine cavity was cleaned with wet sponge and drainage established. Uterus closed in 2 layers using [1-0 Monocryl] in continuous fashion. Second layer with the same suture used for imbrication. Peritoneal cavity irrigated with warm saline. Sponge, needle and instrument count reported to be correct. Abdominal peritoneum closed with [2-0 Vicryl] continuously. Rectus muscle approximated with [2-0 Vicryl]. Fascia closed with [1-0 Vicryl], and skin closed using 3-0 Monocryl in a subcuticular fashion estimated blood loss [600]mL. Patient tolerated the procedure well. Sponge lap and instrument counts were correct 2. Patient was transferred to recovery room in stable condition Post-Procedure Findings: Live Baby [], Apgars [] and [], weight [], position [], [] presentation []cord. Physician Certification I, the undersigned physician, hereby certify that I have discussed the procedure described in this consent form with this patient (or the patient's legal desk representative), including: * The risk and benefits of the procedure; * Any adverse reactions that may reasonably be expected to occur; * Any alternative efficacious methods of treatment which may be medically viable ; * The potential problems that may occur during recuperation; * Potential for blood transfusion and associated risks/benefits; and * Any research or economic interest I may have regarding this treatment. I further certify that the patient/legally responsible person was encouraged to ask question and that all questions were answered. LAMBERTO TOBAR MD Sep 15, 2016 23:51
[2016-09-16] VITALS (8 sets, daily range): BP systolic 97–120; BP diastolic 55–66; PULSE 79–104; RESP 16–18
[2016-09-16] MEDS ORDERED: METHYLERGONOVINE 0.2 MG INJ IM PRN
[2016-09-16] MEDS ORDERED: OXYTOCIN 30 UNITS/LR 500 ML IV PRN
[2016-09-16] MEDS ORDERED: LANOLIN 7 GM TUBE TOP PRN
[2016-09-16] MEDS ORDERED: MISOPROSTOL 200 MCG TAB PR PRN
[2016-09-16] MEDS ORDERED: CARBOPROST 250 MCG INJ IM PRN
[2016-09-16] MEDS: OXYTOCIN 30 UNITS/LR 500 ML IV SCH ×2 (02:25→06:30)
--- NOTE | 2016-09-16 07:18 | PREOPHP ---
DATE OF ADMISSION: 09/14/2016 HISTORY OF PRESENT ILLNESS: This is a 25-year-old lady, 2, para 0, with one . Her EDC is 10/21/2016 at 39-2/7 weeks, admitted in early labor and borderline oligohydramnios, and for Pitocin augmentation. She started to have contractions about 24 hours prior to admission. She came home the night of admission and she was told to come back. She was having more contractions. She had care in my [place] office and the care was uneventful. PAST PERSONAL HISTORY: No history of diabetes, TB, asthma. She had menarche at age 11, every 28 days, interval three to four days' duration, moderate in amount. She is 2, para 0 with one . FAMILY HISTORY: Mother has diabetes. ALLERGIES: NO ALLERGIES. SOCIAL HISTORY: The patient does not smoke. She does not drink. She does not take any drugs except her irons and vitamins. REVIEW OF SYSTEMS: CARDIOVASCULAR: No chest pain. RESPIRATORY: No cough. GASTROINTESTINAL: No diarrhea. No vomiting. GENITOURINARY: No dysuria. PHYSICAL EXAMINATION: GENERAL APPEARANCE: A conscious, coherent lady in no acute distress. VITAL SIGNS: Blood pressure 110/70. Pulse rate 80 per minute. Respirations 16 per minute. BREASTS: Within normal limits. LUNGS: Within normal limits. HEENT: Within normal limits. ABDOMEN: Soft. Fundal height 36 cm. heart tones normal. PELVIC: Exam on admission done by nurse revealed the cervix to be 2 cm dilated, 80 percent effaced, minus 2 in cephalic presentation with the bag of water intact. EXTREMITIES: No pedal edema. ADMITTING DIAGNOSIS: 39 and 2/7 weeks intrauterine in labor, and borderline oligohydramnios. PLAN: The plan of delivery was explained to the patient. She asked to go for vaginal delivery. The risks, benefits and alternatives to vaginal delivery and section were explained to her. She chose to go for Pitocin augmentation. The estimated weight was six pounds, 2794 grams. At 11:50, she was started on Pitocin augmentation. In the evening around 7:30, the case was endorsed to Dr. Evans. Dr. Evans followed the case during the night. At 6:30 a.m., the bag of water was ruptured by Dr. Evans. She was at that time 4 cm dilated, 100 percent effaced, station 0, with the bag of water intact. Then she was continued on Pitocin augmentation. At 9:57 a.m., I came and evaluated the patient. She was 6 to 7 cm dilated, 100 percent effaced and station 0, with good contractions and Pitocin was at 16 mU. The plans were explained to the patient to continue with Pitocin augmentation. The patient agreed to continue with augmentation. The care was transferred to the laborist and she agreed to take care of the patient. The history was given to her. The patient is on epidural already. Dictated By: Melanie Fonseca MD /naeem/audrey /Document#: [id number]
[2016-09-16 08:29] LABS: ADD SCAN DIFF NO
[2016-09-16 08:37] LABS: HEMATOCRIT 29.7 % (37.0-47.0); HEMOGLOBIN 9.9 g/dl (12.0-16.0); MEAN CORPUSCULAR HEMOGLOBIN 30.8 pg (29.0-33.0); MEAN CORPUSCULAR HGB CONC 33.3 g/dl (32.0-37.0); MEAN CORPUSCULAR VOLUME 92.5 fl (82.0-101.0); MEAN PLATELET VOLUME 9.5 fl (7.4-10.4); PLATELET COUNT 167 10^3/UL (140-415); RED BLOOD COUNT 3.21 10^6/ul (4.20-5.40); RED CELL DISTRIBUTION WIDTH 13.6 % (11.5-14.5); WHITE BLOOD COUNT 12.9 10^3/ul (4.8-10.8)
[2016-09-16] MEDS: DIPHENHYDRAMINE 50 MG INJ IV PRN ×2 (09:01→15:40)
[2016-09-16] MEDS: PRENATAL VITAMIN PO SCH (09:01)
[2016-09-16] MEDS: LACTATED RINGER'S 1,000 ML IV SCH ×2 (10:40→18:14)
[2016-09-16 12:56] LABS: LYMPHOCYTES # 2.7 10^3/ul (0.8-2.9); MONOCYTE # 0.5 10^3/ul (0.3-0.9); NEUTROPHIL # 8.5 10^3/ul (1.6-7.5)
[2016-09-16] MEDS ORDERED: ACETAMINOPHEN/CODEINE #3 TAB PO PRN (18:30)
[2016-09-16] MEDS ORDERED: KETOROLAC 30 MG INJ IV PRN (19:00)
[2016-09-16] MEDS ORDERED: HYDROmorphONE 1 MG/ML SYG IV PRN (20:00)
[2016-09-16] MEDS: MAGNESIUM HYDROXIDE 30ML CUP PO PRN (21:54)
[2016-09-16] MEDS ORDERED: OXYCODONE/ACETAMINOPHEN (5/325) TAB PO PRN (22:00)
[2016-09-16] MEDS ORDERED: BISACODYL 10 MG SUPP PR ONE (22:00)
[2016-09-17] MEDS: IBUPROFEN 600 MG TAB PO SCH ×4 (00:58→17:28)
[2016-09-17] MEDS: OXYCODONE/ACETAMINOPHEN (5/325) TAB PO PRN ×3 (03:39→21:08)
[2016-09-17 03:40] VITALS: BP 108/59; PULSE 86; RESP 20
[2016-09-17 08:00] VITALS: BP_SYST 65; PULSE 91; RESP 18
[2016-09-17] MEDS: PRENATAL VITAMIN PO SCH (10:01)
[2016-09-17 16:00] VITALS: BP 107/62; PULSE 90; RESP 18
[2016-09-17 20:20] VITALS: BP 120/73; PULSE 93; RESP 20
[2016-09-18] MEDS: IBUPROFEN 600 MG TAB PO SCH ×3 (00:14→12:31)
[2016-09-18 04:00] VITALS: BP 111/71; PULSE 70; RESP 18
[2016-09-18 07:30] VITALS: BP 106/60; PULSE 84; RESP 18
[2016-09-18] MEDS ORDERED: DIPHTH/TET/ACEL PERTUSS (ADULT) 0.5 ML VIAL IM* ONE (09:00)
[2016-09-18] MEDS ORDERED: MEASLES,MUMPS,RUBELLA VACCINE INJ SC* ONE (09:00)
[2016-09-18] MEDS: PRENATAL VITAMIN PO SCH (09:26)
[2016-09-18] MEDS: MAGNESIUM HYDROXIDE 30ML CUP PO PRN (09:29)
[2016-09-18 11:51] LABS: BASOPHILS % 0.3 % (0.0-2.0); EOSINOPHILS # 0.2 10^3/ul (0.0-0.5); EOSINOPHILS % 3.5 % (0.0-7.0); HEMATOCRIT 29.2 % (37.0-47.0); HEMOGLOBIN 10.1 g/dl (12.0-16.0); LYMPHOCYTES # 1.3 10^3/ul (0.8-2.9); LYMPHOCYTES % 21.2 % (15.0-51.0); MEAN CORPUSCULAR HEMOGLOBIN 31.3 pg (29.0-33.0); MEAN CORPUSCULAR HGB CONC 34.6 g/dl (32.0-37.0); MEAN CORPUSCULAR VOLUME 90.4 fl (82.0-101.0); MEAN PLATELET VOLUME 9.3 fl (7.4-10.4); MONOCYTE # 0.3 10^3/ul (0.3-0.9); MONOCYTES % 5.4 % (0.0-11.0); NEUTROPHIL # 4.3 10^3/ul (1.6-7.5); NEUTROPHILS % 69.1 % (39.0-77.0); PLATELET COUNT 204 10^3/UL (140-415); RED BLOOD COUNT 3.23 10^6/ul (4.20-5.40); RED CELL DISTRIBUTION WIDTH 13.2 % (11.5-14.5); WHITE BLOOD COUNT 6.3 10^3/ul (4.8-10.8)
== END 2016-09-18 16:36 | disposition home or self-care (01) | DRG 766 ==
LOC: L-D 10:05 → PP1 09-16 00:15 → EDSTATUS 09-16 10:03
PROVIDERS: ADMIT Obstetrics & Gynecology; ATTEND Obstetrics & Gynecology
PROC: 3E033VJ Introduction of Other Hormone into Peripheral Vein, Percutaneous Approach (ICD-10-PCS; 2016-09-15)
PROC: 10D00Z1 Extraction of Products of Conception, Low, Open Approach (ICD-10-PCS; principal; 2016-09-15 20:30)
PROC: 3E00X4Z Introduction of Serum, Toxoid and Vaccine into Skin and Mucous Membranes, External Approach (ICD-10-PCS; 2016-09-18)
DX: O62.0 Primary inadequate contractions (principal); O76 Abnormality in fetal heart rate and rhythm complicating labor and delivery; Z23 Encounter for immunization; Z3A.39 39 weeks gestation of pregnancy; Z37.0 Single live birth
CPT/HCPCS: 62319; 76815; 85025; 85610; 85730; 86592; 86900; 86901; 90715; 99464; J0290; J0690; J1100; J1170; J1200; J1885; J2250; J2274; J2370; J2405; J2590; J2765; J3010; J7120

== ENCOUNTER 2017-04-25 11:42 | Emergency (ER) | END 2017-04-25 14:31 | disposition home or self-care (01) ==

== ENCOUNTER 2017-10-04 13:55 | Emergency (ER) | END 2017-10-04 16:59 | disposition home or self-care (01) ==

== ENCOUNTER 2017-11-04 12:26 | Emergency (ER) | END 2017-11-04 15:25 | disposition home or self-care (01) ==

== ENCOUNTER → 2018-09-09 | Emergency (ER) | payer BC, MEDICAID, OTHER ==
[~2018-09-09] VITALS: Wt 74.6 kg
[~2018-09-09] MED LIST changes: +ACET500C5 PO; +ACETAMINOPHEN 325 MG TAB PO STA; +IBUP-1542 PO; +NITR-58 PO
[2018-09-09 15:54] VITALS: BP 118/86; PULSE 86; RESP 18
--- NOTE | 2018-09-10 02:08 | CONS ---
Assessment/Plan Assessment/Plan Hospital Course (Demo Recall) A early with threatened P repeat u/s and HCG in one week RTH immediately if symptoms increase Consultation Date/Type/Reason Admit Date/Time Date of Consultation: Sep 09, 2018 Type of Consult OB ,PROFESSOR OF BIOLOGICAL SCIENCES Reason for Consultation vaginal bleeding Requesting Provider: A Date/Time of Note DATE: 09/10/18 TIME: 01:43 Hx of Present Illness 28y.o A1(ectopic Rt) LMP july 01 ,has been on clomid for induction of ovulation,presents ER with c/o vaginal bleeding with passing clots 2 times ,happened 2hrs prior to visit to ER with some lower abdominal cramping pain earlier but at the time of exam no m ore pain complained.. patient stated that pain gets aggrevated with activities,alleviated with rest. currently she is wearing pad which hasn't been soak through , only covered pad with coin size of stain. u/s showed GS but no cardiac activities or pole which could be very early IUP with HCG 1118 Since patient desire to keep we can d the comparison study in one week unless pain intensity increase or vaginal bleeding increase in amount, advise her to RTH immediately in case of above mentioned symptoms. vaginal bleeding with cramping pain Constitutional: no complaints, improved Eyes: no complaints ENT: no complaints Respiratory: no complaints Cardiovascular: no complaints Gastrointestinal: no complaints Genitourinary: bleeding, other (lower abdominal cramping pain) Skin: no complaints Neurologic: no complaints Endocrine: no complaints Lymphatic: no complaints Psychological: no complaints, nl mood/affect Immunologic: no complaints Past Medical History Medical History: no pertinent history Home Meds Active Scripts Acetaminophen* (Tylophen*) 500 Mg Capsule, 1 CAP PO Q6H PRN for PAIN AND OR ELEVATED TEMP, #20 CAP Prov:ANGUSIGRMARGARITA BRADY PA-C 09/10/18 Ibuprofen* (Motrin*) 600 Mg Tab, 600 MG PO Q6, #30 TAB Prov:JAZMIN AGUILERA 10/04/17 Nitrofurantoin Monohyd Macrocr* (Macrobid*) 100 Mg Capsr, 100 MG PO DAILY for 7 Days, CAP Prov:NIMESH RICE COST ACCOUNTING ANALYST 04/25/17 Reported Medications Multivit/Min/Fol Ac/Iron/Pren* ( S*) 1 Tab Tab, 1 TAB PO DAILY, TAB 05/08/16 Allergies: Coded Allergies: No Known Allergy (Unverified , 11/04/17) Past Surgical History Past Surgical Hx: no surgical history Family History Significant Family History: cancer (aunt (P) breast cancer at age of 35y.o), diabetes, hypertension (mom) Social History Alcohol Use: none Smoking Status: Never smoker Drug Use: none Exam/Review of Systems Exam Vitals Vital Signs Date Temp Pulse Resp B/P (MAP) Pulse Ox O2 O2 Flow FiO2 Time Delivery Rate 09/09/18 99.4 86 18 118/86 98 15:54 (97) Constitutional: alert, oriented, well developed Psych: no complaints, nl mood/affect Head: normocephalic, atraumatic Eyes: nl conjunctiva, EOMI, nl lids, nl sclera, PERRL ENMT: nl external ears & nose, nl lips & teeth, nl nasal mucosa & septum Neck: supple, non-tender Cardiovascular: regular rate and rhythm, nl pulses Gastrointestinal: soft, nl liver, spleen, non-tender Genitourinary - Female: nl adnexae, uterus (GS in utero on u/s) Musculoskeletal: nl extremities to inspection, nl gait and stance Extremities: normal pulses Neurological: CREATIVE GURU II-XII intact, nl mental status, nl speech, nl strength Results Result Diagram: 09/09/181945 Results 24hrs Laboratory Tests Test 09/09/18 19:46 White Blood Count 7.8 Red Blood Count 4.47 Hemoglobin 13.2 Hematocrit 39.6 Mean Corpuscular Volume 88.6 Mean Corpuscular Hemoglobin 29.5 Mean Corpuscular Hemoglobin Concent 33.3 Red Cell Distribution Width 12.5 Platelet Count 272 Mean Platelet Volume 9.5 Immature Granulocytes % 0.300 Neutrophils % 57.4 Lymphocytes % 35.0 Monocytes % 5.5 Eosinophils % 1.5 Basophils % 0.3 Nucleated Red Blood Cells % 0.0 Immature Granulocytes # 0.020 Neutrophils # 4.5 Lymphocytes # 2.7 Monocytes # 0.4 Eosinophils # 0.1 Basophils # 0.0 Nucleated Red Blood Cells # 0.0 Urine Color YELLOW Urine Clarity SLIGHTLY CLOUDY A Urine pH 6.0 Urine Specific [place] 1.008 Urine Ketones NEGATIVE Urine Nitrite NEGATIVE Urine Bilirubin NEGATIVE Urine Urobilinogen NEGATIVE Urine Leukocyte Esterase TRACE A Urine Microscopic RBC > 182 H Urine Microscopic WBC 9 H Urine Squamous Epithelial Cells FEW Urine Hemoglobin 3+ H Urine Glucose NEGATIVE Urine Total Protein NEGATIVE Urine Test POSITIVE Beta HCG, Quantitative 1118.5 JULIO MAHAJAN MD Sep 10, 2018 02:02
--- NOTE | 2018-09-10 03:40 | ERD ---
ER Documentation Chief Complaint Chief Complaint vaginal bleeding and since yesterday. no dysuria. HPI This is a 27-year-old G3, female with history of previous ectopic on the right who presents with vaginal bleeding x 2 days. Patient states she has been having both vaginal bleeding and clots, soaking 1 pad a day since yesterday. She also endorses lower abdominal cramping. No dysuria, frequency or urgency. She states her last menstrual cycle was July 01, 2018, menstrual cycles are usually regular. She states she went to a clinic 2 weeks ago and told she was . Her hCG 2 days ago was in the 700 range. No nausea or vomiting. No lightheadedness or dizziness. No fevers. No other complaints. ROS All systems reviewed and are negative except as per history of present illness. Medications Home Meds Active Scripts Acetaminophen* (Tylophen*) 500 Mg Capsule, 1 CAP PO Q6H PRN for PAIN AND OR ELEVATED TEMP, #20 CAP Prov:MARGARITA VEGAC 09/10/18 Ibuprofen* (Motrin*) 600 Mg Tab, 600 MG PO Q6, #30 TAB Prov:JAZMIN AGUILERA 10/04/17 Nitrofurantoin Monohyd Macrocr* (Macrobid*) 100 Mg Capsr, 100 MG PO DAILY for 7 Days, CAP Prov:NIMESH RICE GAS TESTER 04/25/17 Reported Medications Multivit/Min/Fol Ac/Iron/Pren* ( S*) 1 Tab Tab, 1 TAB PO DAILY, TAB 05/08/16 Allergies Allergies: Coded Allergies: No Known Allergy (Unverified , 11/04/17) PMhx/Soc History of Surgery: Yes (Ectopic , ) Anesthesia Reaction: No Hx Neurological Disorder: No Hx Respiratory Disorders: No Hx Cardiac Disorders: No Hx Psychiatric Problems: No Hx Miscellaneous Medical Probl: Yes (ECTOPIC ) Hx Alcohol Use: No Hx Substance Use: No Hx Tobacco Use: No Smoking Status: Never smoker Physical Exam Vitals Vital Signs Date Temp Pulse Resp B/P (MAP) Pulse Ox O2 O2 Flow FiO2 Time Delivery Rate 09/09/18 99.4 86 18 118/86 98 15:54 (97) Physical Exam Const: No acute distress Head: Atraumatic Eyes: Normal Conjunctiva ENT: Normal External Ears, Nose and Mouth. Neck: Full range of motion. No meningismus. Resp: Clear to auscultation bilaterally Cardio: Regular rate and rhythm, no murmurs Abd: Soft,+ lower pelvic tenderness to palpation, no rebound, no guarding. Negative McBurney's, negative Lozano's. Non distended. Normal bowel sounds Skin: No petechiae or rashes Back: No midline or flank tenderness Ext: No cyanosis, or edema Neur: Awake and alert Psych: Normal Mood and Affect Result Diagram: 09/09/181945 Results 24 hrs Laboratory Tests Test 09/09/18 19:46 White Blood Count 7.8 10^3/ul Red Blood Count 4.47 10^6/ul Hemoglobin 13.2 g/dl Hematocrit 39.6 % Mean Corpuscular Volume 88.6 fl Mean Corpuscular Hemoglobin 29.5 pg Mean Corpuscular Hemoglobin Concent 33.3 g/dl Red Cell Distribution Width 12.5 % Platelet Count 272 10^3/UL Mean Platelet Volume 9.5 fl Immature Granulocytes % 0.300 % Neutrophils % 57.4 % Lymphocytes % 35.0 % Monocytes % 5.5 % Eosinophils % 1.5 % Basophils % 0.3 % Nucleated Red Blood Cells % 0.0 /100WBC Immature Granulocytes # 0.020 10^3/ul Neutrophils # 4.5 10^3/ul Lymphocytes # 2.7 10^3/ul Monocytes # 0.4 10^3/ul Eosinophils # 0.1 10^3/ul Basophils # 0.0 10^3/ul Nucleated Red Blood Cells # 0.0 10^3/ul Urine Color YELLOW Urine Clarity SLIGHTLY CLOUDY Urine pH 6.0 Urine Specific [place] 1.008 Urine Ketones NEGATIVE mg/dL Urine Nitrite NEGATIVE mg/dL Urine Bilirubin NEGATIVE mg/dL Urine Urobilinogen NEGATIVE mg/dL Urine Leukocyte Esterase TRACE Suzan/ul Urine Microscopic RBC > 182 /HPF Urine Microscopic WBC 9 /HPF Urine Squamous Epithelial Cells FEW /HPF Urine Hemoglobin 3+ mg/dL Urine Glucose NEGATIVE mg/dL Urine Total Protein NEGATIVE mg/dl Urine Test POSITIVE Beta HCG, Quantitative 1118.5 mIU/ml Current Medications Medications Dose Sig/Priti Start Time Status Last (Trade) Ordered Route PRN Stop Time Admin Dose Reason Admin 650 mg ONCE STAT 09/09/18 DC 09/09/18 Acetaminophen PO 19:25 19:30 (Tylenol 7/13/19 19:27 Tab) Procedures/MDM LABS & DIAGNOSTIC IMAGING: CBC: no e/o of systemic infection or severe anemia CMP: no e/o severe acidosis, alkalosis, renal failure, diabetic ketoacidosis, liver disease Urine: no e/o acute infection or hematuria Beta-hC RhoD: positive PROCEDURE: US OB with transvaginal. CLINICAL INDICATION: Vaginal bleeding. Clinical estimated gestational age is 10 weeks 0 days with estimated date of delivery 04/07/2019 IMPRESSION: of uncertain viability. Single early intrauterine . No pole or embryonic heart activity seen which could be due to early gestational ag e. There is an additional 3.9 x 2.4 x 3.3 cm oval fluid collection in the endometrium in the fundus of uncertain etiology. Please see above. Follow-up is recommended. ED COURSE: The patient was given Tylenol The medication was well tolerated and the patient had market improvement in symptoms. The patient remained stable throughout ED course. MEDICAL DECISION MAKIN-year-old G3, with previous ectopic , currently at about 2 weeks gestation who presents with vaginal bleeding in first trimester. Labs without any signs of infection, dehydration or significant anemia. Her serum HCG was 1185. US showed a single live IUP without pole or embryonic heart activity. Differential diagnosis includes early , complete , and less likely ectopic . Patient did not feel comfortable going home before speaking to SEED CORE OPERATOR. I contacted OB on-call, Dr. Agrawal who evaluated patient at bedside. Patient had no evidence of hemorrhage. She had no signific ant bleeding on her exam and she felt patient was hemodynamically stable enough to be discharged with outpatient follow-up. She recommended repeat pelvic ultrasound and labs in 1 week. Her Rh was positive and she does not require Rhogam. Patient was given a copy of her results and told to follow up with dye box operator or return here in 1 week. Strict return precautions were discussed. PRESCRIPTIONS: Tylenol SPECIALIST FOLLOW UP RECOMMENDED: OBGYN Patient has been advised to follow up with primary care in 1-2 days. Departure Diagnosis: Primary Impression: Vaginal bleeding in patient at less than 20 weeks ges... Condition: Stable Patient Instructions: Bleeding During Early Referrals: COMMUNITY CLINICS YOU HAVE RECEIVED A MEDICAL SCREENING EXAM AND THE RESULTS INDICATE THAT YOU DO NOT HAVE A CONDITION THAT REQUIRES URGENT TREATMENT IN THE EMERGENCY DEPARTMENT. FURTHER EVALUATION AND TREATMENT OF YOUR CONDITION CAN WAIT UNTIL YOU ARE SEEN IN YOUR DOCTORS OFFICE WITHIN THE NEXT 1-2 DAYS. IT IS YOUR RESPONSIBILITY TO MAKE AN APPOINTMENT FOR FOLOW-UP CARE. IF YOU HAVE A PRIMARY DOCTOR --you should call your primary doctor and schedule an appointment IF YOU DO NOT HAVE A PRIMARY DOCTOR YOU CAN CALL OUR PHYSICIAN REFERRAL HOTLINE AT IF YOU CAN NOT AFFORD TO SEE A PHYSICIAN YOU CAN CHOSE FROM THE FOLLOWING [facility] [address] [facility] [address] [facility] [address] [facility] [address] [facility] [address] [facility]. [facility] [address] [facility]. [facility] YOU HAVE RECEIVED A MEDICAL SCREENING EXAM AND THE RESULTS INDICATE THAT YOU DO NOT HAVE A CONDITION THAT REQUIRES URGENT TREATMENT IN THE EMERGENCY DEPARTMENT. FURTHER EVALUATION AND TREATMENT OF YOUR CONDITION CAN WAIT UNTIL YOU ARE SEEN IN YOUR DOCTORS OFFICE WITHIN THE NEXT 1-2 DAYS. IT IS YOUR RESPONSIBILITY TO MAKE AN APPOINTMENT FOR FOLOW-UP CARE. IF YOU HAVE A PRIMARY DOCTOR --you should call your primary doctor and schedule and appointment IF YOU DO NOT HAVE A PRIMARY DOCTOR YOU CAN CALL OUR PHYSICIAN REFERRAL HOTLINE AT . IF YOU CAN NOT AFFORD TO SEE A PHYSICIAN YOU CAN CHOSE FROM THE FOLLOWING [facility] INSTITUTIONS: [facility] [address] [place] [address] [facility] [address] [place] [address] [facility] [address] [place] [address] Additional Instructions: Return in 1 week or see your SEED CORE OPERATOR for repeat pelvic ultrasound and labs. Return here if you start to notice increasing in bleeding, worsening pain, fevers or any other symptoms. He can take Tylenol for pain in the meantime. MARGARITA VEGA PA-C Sep 10, 2018 03:40
== END | disposition home or self-care (01) ==
LOC: FTE 15:41
DX: O20.9 Hemorrhage in early pregnancy, unspecified (principal); R10.2 Pelvic and perineal pain; Z3A.10 10 weeks gestation of pregnancy
CPT/HCPCS: 36415; 76801; 76817; 81001; 84702; 84703; 85025; 86900; 86901; 87086

== ENCOUNTER 2018-10-09 20:42 | Emergency (ER) | payer BC ==
[~2018-10-09] VITALS: Ht 167.6 cm; Wt 74.5 kg
[~2018-10-09 20:42] MED LIST changes: -ACETAMINOPHEN 325 MG TAB PO STA
[2018-10-09 20:54] VITALS: Ht 167.6 cm; Wt 74.5 kg
[2018-10-10 02:39] VITALS: BP 115/67; PULSE 78; RESP 19
== END 2018-10-10 02:40 | disposition home or self-care (01) ==
LOC: FTE 20:42
DX: O20.9 Hemorrhage in early pregnancy, unspecified (principal); Z3A.00 Weeks of gestation of pregnancy not specified
CPT/HCPCS: 36415; 76801; 76817; 80048; 81001; 84702; 85025; 85610; 85730